=== PATIENT | male | born 1980 | race Caucasian/White ===

== ENCOUNTER 2017-07-26 19:26 | Inpatient (IN) | payer SELFPAY ==
[~2017-07-26] VITALS: Ht 177.8 cm; Wt 78.7 kg
[~2017-07-26 19:26] MED LIST: ALBUTEROL0.09 MG/A2 IH; AMOXICILLIN500 MG PO; CLEOCIN150 MG PO; KEFLEX500 MG PO; MEDROL DOSEPAK4 MG PO; MOTRIN800 MG PO; TRAMADOL HCL50 MG PO; TRIMOX500 MG PO; VICODIN 5/500 505 MG PO; VICODIN ES 7501 TAB PO
[2017-07-26 19:39] VITALS: BP 148/103
[2017-07-26 20:43] LABS: BASO # 0.1 10*3/uL (0.0-0.1); BASO % 0.6 % (0.0-1.0); EOS # 0.4 10*3/uL (0.0-0.4); EOS % 2.7 % (1.0-4.0); HEMATOCRIT 49.1 % (42.0-52.0); HEMOGLOBIN 16.3 g/dl (14.0-18.0); LYMPH # 4.2 10*3/uL (1.3-4.4); MEAN CELL VOLUME 87.7 fl (80.0-94.0); MEAN CORPUSCULAR HGB 29.1 pg (27.0-31.0); MEAN CORPUSCULAR HGB CONC 33.2 g/dl (33.0-37.0); MEAN PLATELET VOLUME 10.5 fl (9.6-12.3); MONO # 0.7 10*3/uL (0.1-1.0); MONO % 4.5 % (3.0-9.0); NEUT % 62.8 % (47.0-73.0); PLATELET COUNT AUTOMATED 316 10*3/uL (130-400); RED CELL DISTRI WIDTH 13.2 % (0-14.5); WHITE BLOOD COUNT 14.3 10*3/uL (4.8-10.8)
[2017-07-26 20:59] LABS: ALKALINE PHOSPHATASE 49 U/L (45-117); BUN 10 mg/dl (7-24); CHLORIDE 107 mmol/L (98-107); CREATININE 0.97 mg/dL (0.70-1.30); LIPASE 141 U/L (73-393); POTASSIUM 3.7 mmol/L (3.5-5.1); SGOT/AST 23 IU/L (3-35); SGPT/ALT 26 U/L (12-78); SODIUM 140 mmol/L (136-145); TOTAL PROTEIN 7.9 gm/dL (6.4-8.2)
--- NOTE | 2017-07-26 22:27 | NUR ---
PT STATES PAIN IS BEGINNING TO RETURN.REPORTS LLQ ABD PAIN OF 8/10.MD NOTIFIED.
[2017-07-26 23:31] VITALS: BP 133/87
[2017-07-27] VITALS: BP 132/86
--- NOTE | 2017-07-27 | NUR ---
[facility] , under the services of ART Sousa DO with a diagnosis of GI BLEED, DIVERTICULOSIS,SEPSIS. Chief complaint is ABDOMINAL PAIN, BRIGHT RED STOOL. Patient arrived via ambulatory from ER. Monitor applied. Initial assessment completed. Vital signs taken and recorded. ART SOUSA DO notified of admission to the unit. Orders received. See assessment for past medical history, medications and allergies. Patient and/or family oriented to unit. [facility] visitation policy reviewed. Clothing/patient valuable form completed. SULLY BRO
--- NOTE | 2017-07-27 | NUR ---
PATIENT TAKES NO HOME MEDICATIONS AND HAS NO PHYSICIAN .
--- NOTE | 2017-07-27 06:18 | NUR ---
DR. JIANG CALLED AT THIS TIME FOR CONSULTAITON. PER DR. JIANG HE WOULD LIKE CALLED BACK WITH RECENT H&H RESULTS.
--- NOTE | 2017-07-27 06:28 | NUR ---
PATIENT AROUSES EASILY FOR MORNING MEDICATIONS AT THIS TIME. ALERT AND ORIENTED X3. PLEASANT AND COOPERATIVE. DENIES ANY NEEDS AT THE PRESENT TIME. CALL LIGHT IS IN REACH.
[2017-07-27 06:52] LABS: BASO # 0.1 10*3/uL (0.0-0.1); BASO % 0.6 % (0.0-1.0); EOS # 0.4 10*3/uL (0.0-0.4); EOS % 3.5 % (1.0-4.0); LYMPH # 4.7 10*3/uL (1.3-4.4); MEAN CELL VOLUME 90.1 fl (80.0-94.0); MEAN CORPUSCULAR HGB 29.3 pg (27.0-31.0); MEAN CORPUSCULAR HGB CONC 32.6 g/dl (33.0-37.0); MEAN PLATELET VOLUME 10.4 fl (9.6-12.3); MONO # 0.7 10*3/uL (0.1-1.0); MONO % 6.8 % (3.0-9.0); NEUT # 4.4 10*3/uL (2.3-7.9); NEUT % 42.9 % (47.0-73.0); PLATELET COUNT AUTOMATED 235 10*3/uL (130-400); RED BLOOD COUNT 4.74 10*6/uL (4.50-5.90); RED CELL DISTRI WIDTH 13.4 % (0-14.5); WHITE BLOOD COUNT 10.1 10*3/uL (4.8-10.8)
[2017-07-27 06:58] LABS: HEMATOCRIT 42.7 % (42.0-52.0); HEMOGLOBIN 13.9 g/dl (14.0-18.0)
[2017-07-27 07:35] LABS: BUN 8 mg/dl (7-24); CHLORIDE 112 mmol/L (98-107); CREATININE 0.96 mg/dL (0.70-1.30); PHOSPHOROUS 3.1 mg/dL (2.5-4.9); POTASSIUM 4.3 mmol/L (3.5-5.1); SODIUM 144 mmol/L (136-145)
[2017-07-27 08:00] VITALS: BP 108/61
[2017-07-27 08:00] LABS: VITAMIN D, 25-HYDROXY 29.5 ng/mL (30-100)
--- NOTE | 2017-07-27 08:30 | NUR ---
[facility] in to talk to patient. Patient states lives at HOME with HIS GIRLFRIEND. There are [address] in [address] home. Physician: NO PCP DOES NOT WANT SET UP WITH PCP AT [place] Pharmacy: [facility] Home health services: NONE Patient's level of ADLs: INDEPENDENT Patient has working utilities: YES DME: NONE Follow-up physician's appointment after d/c: DOES NOT WANT APPT MADE Does patient want to access PORTAL?: Discharge plan HOME. GUSTAVO MOTA
[2017-07-27 12:00] VITALS: BP 116/73
--- NOTE | 2017-07-27 13:04 | NUR ---
Spoke to Dr Appiah per pt request regarding diet change. dr appiah stated his reccommendation is a clear liquid diet as her treatment plan of care.
--- NOTE | 2017-07-27 15:20 | NUR ---
MORPHINE 2 MG GIVEN FOR C/O LUQ PAIN, 05/18.
[2017-07-27 16:00] VITALS: BP 122/76
--- NOTE | 2017-07-27 19:39 | NUR ---
PATIENT IS AWAKE, ALERT AND ORIENTED. PLEASANT AND COOPERATIVE WITH ASSESSMENT. LUNGS ARE CLEAR THROUGHOUT LUNGFIELDS. ROOM AIR. ABDOMEN IS SOFT , PER PATIENT TENDERNESS AND SHARP PAIN TO LLQ, NORMOACTIVE BOWEL SOUNDS X 4 QUADS. PATIENT RATES HIS PAIN 8/10 ON PAIN SCALE. PRN MORPHINE GIVEN AT THIS TIME. NO EDEMA TO BLE, PPP. CALL LIGHT IS IN REACH.
--- NOTE | 2017-07-27 20:39 | NUR ---
PATIENT IS RESTING IN BED WITH EYES CLOSED BILATERALLY. RESPIRATIONS ARE EASY AND REGUALR. NO S/S OF PAIN OR DISCOMORT. MORPHINE EFFECTIVE AT THIS TIME. CALL LIGHT IS IN REACH.
--- NOTE | 2017-07-27 23:26 | NUR ---
PATIENT VERBALIZED C/O PAIN IN HIS LL ABDOMINAL QUADRANT. PATIENT STATES THAT THIS PAIN IS SHARP AND STABBING. RATES THIS PAIN 8/10 ON PAIN SCALE. PRN MORPHINE GIVEN AT THIS TIME. CALL LIGHT IS IN REACH.
[2017-07-28] VITALS: BP 135/84
--- NOTE | 2017-07-28 00:30 | NUR ---
PATIENT RESTING IN BED WITH EYES CLOSED BILATERALLY. RESPIRATIONS ARE EASY AND REGULAR. NO S/S OF PAIN OR DISCOMFORT. MORPHINE EFFECTIVE AT THIS TIME. CALL LIGHT IS IN REACH.
--- NOTE | 2017-07-28 05:35 | NUR ---
PATIENT AROUSES EASILY FOR MORNING MEDICATIONS. ALERT AND ORIENTED. CECILLEN REQUESTED PAIN MEDICATION FOR C/O PAIN TO HIS LLQ, RATES THIS PAIN 9/10 ON PAIN SCALE. DESCRIBES PAIN A SHARP AND STABBING. PRN MORPHINE GIVEN AT THIS TIME. CALL LIGHT IS IN REACH.
[2017-07-28 07:08] LABS: BASO # 0.1 10*3/uL (0.0-0.1); BASO % 0.6 % (0.0-1.0); EOS # 0.3 10*3/uL (0.0-0.4); EOS % 3.4 % (1.0-4.0); HEMATOCRIT 42.4 % (42.0-52.0); HEMOGLOBIN 13.9 g/dl (14.0-18.0); LYMPH % 40.7 % (27.0-41.0); MEAN CELL VOLUME 89.5 fl (80.0-94.0); MEAN CORPUSCULAR HGB 29.3 pg (27.0-31.0); MEAN CORPUSCULAR HGB CONC 32.8 g/dl (33.0-37.0); MEAN PLATELET VOLUME 10.8 fl (9.6-12.3); MONO # 0.7 10*3/uL (0.1-1.0); MONO % 6.8 % (3.0-9.0); NEUT # 4.8 10*3/uL (2.3-7.9); NEUT % 48.2 % (47.0-73.0); PLATELET COUNT AUTOMATED 242 10*3/uL (130-400); RED BLOOD COUNT 4.74 10*6/uL (4.50-5.90); RED CELL DISTRI WIDTH 13.3 % (0-14.5); WHITE BLOOD COUNT 9.9 10*3/uL (4.8-10.8)
[2017-07-28 07:32] LABS: BUN 7 mg/dl (7-24); CHLORIDE 112 mmol/L (98-107); CREATININE 1.05 mg/dL (0.70-1.30); SODIUM 143 mmol/L (136-145)
[2017-07-28 08:08] VITALS: BP 103/41
[2017-07-28] MEDS ORDERED: VITAMIN D31000 UNI1 PO (11:33)
[2017-07-28] MEDS ORDERED: CIPRO500 MG PO (11:33)
[2017-07-28] MEDS ORDERED: FLAGYL500 MG PO (11:33)
[2017-07-28] MEDS ORDERED: VICODIN 5-3001 EACH PO (11:33)
[2017-07-28] MEDS ORDERED: B12,B-12,B 12500 MC1 PO (11:33)
[2017-07-28 11:59] VITALS: BP 142/88
--- NOTE | 2017-07-28 12:05 | NUR ---
Discharge instructions reviewed with patient/family. Patient receptive and verbalizes understanding. Follow-up care arranged. Written instructions given to patient/family. ADRIANNE DIAL
== END 2017-07-28 12:05 | disposition home or self-care (01) | DRG 871 ==
LOC: ED 19:26 → EDHOLD 23:05 → 5E 23:05
PROVIDERS: Internal Medicine; Student in an Organized Health Care Education/Training Program; ADMIT Internal Medicine
DX: A41.9 Sepsis, unspecified organism (principal); K57.33 Diverticulitis of large intestine without perforation or abscess with bleeding; F17.210 Nicotine dependence, cigarettes, uncomplicated; R03.0 Elevated blood-pressure reading, without diagnosis of hypertension; Z53.29 Procedure and treatment not carried out because of patient's decision for other reasons; Z71.6 Tobacco abuse counseling; Z82.5 Family history of asthma and other chronic lower respiratory diseases

== ENCOUNTER 2021-04-14 17:52 | Emergency (ER) | payer OTHER ==
[~2021-04-14] VITALS: Ht 175.2 cm; Wt 81.6 kg
[~2021-04-14 17:52] MED LIST changes: +B12,B-12,B 12500 MC1 PO; +CIPRO500 MG PO; +FLAGYL500 MG PO; +VICODIN 5-3001 EACH PO; +VITAMIN D31000 UNI1 PO
[2021-04-14 18:35] LABS: BASO # 0.1 10*3/uL (0.0-0.1); BASO % 0.8 % (0.0-1.0); EOS # 0.5 10*3/uL (0.0-0.4); EOS % 4.3 % (1.0-4.0); HEMATOCRIT 45.4 % (42.0-52.0); LYMPH # 3.5 10*3/uL (1.3-4.4); LYMPH % 33.9 % (27.0-41.0); MEAN CELL VOLUME 87.5 fl (80.0-94.0); MEAN CORPUSCULAR HGB 28.5 pg (27.0-31.0); MEAN CORPUSCULAR HGB CONC 32.6 g/dl (33.0-37.0); MEAN PLATELET VOLUME 10.3 fl (9.6-12.3); MONO # 0.7 10*3/uL (0.1-1.0); MONO % 6.3 % (3.0-9.0); NEUT # 5.7 10*3/uL (2.3-7.9); NEUT % 54.3 % (47.0-73.0); PLATELET COUNT AUTOMATED 279 10*3/uL (130-400); RED BLOOD COUNT 5.19 10*6/uL (4.50-5.90); RED CELL DISTRI WIDTH 13.2 % (0-14.5); WHITE BLOOD COUNT 10.4 10*3/uL (4.8-10.8)
[2021-04-14 19:02] LABS: ALBUMIN 3.5 gm/dl (3.1-4.5); ALKALINE PHOSPHATASE 37 U/L (45-117); BUN 13 mg/dl (7-24); CHLORIDE 109 mmol/L (98-107); CREATININE 1.05 mg/dL (0.70-1.30); SGOT/AST 18 IU/L (3-35); SGPT/ALT 31 U/L (12-78); SODIUM 142 mmol/L (136-145); TOTAL PROTEIN 7.2 gm/dL (6.4-8.2)
== END 2021-04-14 22:43 | disposition home or self-care (01) ==
LOC: ED 17:52
PROVIDERS: Physician Assistant
DX: K40.90 Unilateral inguinal hernia, without obstruction or gangrene, not specified as recurrent (principal); F17.210 Nicotine dependence, cigarettes, uncomplicated; Z98.890 Other specified postprocedural states; Z79.899 Other long term (current) drug therapy

== ENCOUNTER → 2021-04-29 | Day surgery (SDC) | payer OTHER ==
[~2021-04-29] VITALS: Ht 177.8 cm; Wt 81.6 kg
[~2021-04-29] MED LIST changes: +COLACE100 MG PO; +PERCOCET 5-3251 EACH PO; +ZOFRAN4 MG PO
[2021-04-29 08:16] VITALS: BP 128/88
[2021-04-29 09:55] VITALS: BP 131/76
[2021-04-29 10:10] VITALS: BP 159/99
[2021-04-29 10:25] VITALS: BP 127/83
[2021-04-29 10:40] VITALS: BP 122/79
[2021-04-29 10:55] VITALS: BP 120/74
== END | disposition home or self-care (01) ==
LOC: COVID19 04-26 13:15 → SDC 04-26 13:15
PROVIDERS: ATTEND Surgery
DX: K40.00 Bilateral inguinal hernia, with obstruction, without gangrene, not specified as recurrent (principal); D17.1 Benign lipomatous neoplasm of skin and subcutaneous tissue of trunk; Z87.891 Personal history of nicotine dependence; Z20.822 Contact with and (suspected) exposure to COVID-19; Z79.899 Other long term (current) drug therapy